=== PATIENT | male | born 1955 | race Caucasian/White ===

== ENCOUNTER → 2021-01-10 | Outpatient (CLI) | payer OTHER | END | disposition home or self-care (01) | LOC: ROC 08:19 | PROVIDERS: ATTEND Radiology Radiation Oncology | DX: C61 Malignant neoplasm of prostate (principal) | CPT/HCPCS: 99214; G0463 ==

== ENCOUNTER 2021-03-04 08:33 | Outpatient (CLI) | payer OTHER | END 2021-03-04 23:59 | disposition home or self-care (01) | LOC: ROC 08:33 | PROVIDERS: ATTEND Radiology Radiation Oncology | DX: C61 Malignant neoplasm of prostate (principal) | CPT/HCPCS: 99214; G0463 ==